=== PATIENT | female | born 1945 | race Caucasian/White ===

== ENCOUNTER → 2016-07-31 | Outpatient (CLI) | payer BC ==
[~2016-07-31] MED LIST: ASPI81TA28 PO; CALC500C70 PO; CARV3.122 PO; CARV6.252 PO; INSDGI SQ; LISI-787 PO; METF1TAB53 PO; MULT-506 PO; OMEG10007 PO; PRAV20TA PO; pioglitazone PO
[2016-07-31 13:17] LABS: HEMATOCRIT 39.2 % (37-47); MEAN CELL VOLUME 88.5 fL (80-100); MEAN CORPUSCULAR HGB CONC 33.9 g/dl (32-36); MEAN PLATELET VOLUME 9.8 fL (7.4-10.4); PLATELET COUNT 214 K/uL (130-400); RED BLOOD COUNT 4.43 M/uL (4.2-5.4); WHITE BLOOD COUNT 7.23 K/uL (4.8-10.8)
[2016-07-31 13:25] LABS: BLOOD UREA NITROGEN 15 mg/dl (7-18); BUN/CREATININE RATIO 18.2 (10-20); CALCIUM 10.1 mg/dl (8.5-10.1); CARBON DIOXIDE 27 mmol/L (21-32); CHLORIDE 104 mmol/L (98-107); CREATININE 0.81 mg/dl (0.60-1.20); GLUCOSE 192 mg/dl (70-99); POTASSIUM 4.1 mmol/L (3.5-5.1); SODIUM 141 mmol/L (136-145)
== END | disposition home or self-care (01) ==
LOC: C.LABMFLN 08:20
PROVIDERS: ATTEND Internal Medicine Cardiovascular Disease
DX: Z01.818 Encounter for other preprocedural examination (principal)

== ENCOUNTER 2016-08-03 10:12 | Observation (INO) | payer BC ==
[~2016-08-03] VITALS: Ht 162.6 cm; Wt 93.2 kg
[2016-08-03] VITALS (8 sets, daily range): BP systolic 113–154; BP diastolic 66–80; PULSE 73–94; TEMP 36.7–36.9; O2SAT 90–97; Ht 162.6 cm; Wt 93.2 kg
[~2016-08-03 10:12] MED LIST changes: -CARV6.252 PO; +CEFAZOLIN 1000MG/55 ML D5W IV SCH; +LACTATED RINGER'S 1000ML 1,000 ML IV SCH
[2016-08-03] MEDS ORDERED: CARV6.252 PO (11:32)
[2016-08-03] MEDS ORDERED: CEFAZOLIN 2000 MG/60 ML D5W 60 ML IV SCH (12:30)
--- NOTE | 2016-08-03 13:00 | Procedure Note ---
Pre-Mod Sedation Assessment General Date of Moderate Sedation: Aug 03, 2016. Vital Signs: Vital Signs Past 12 Hours Date Time Temp Pulse Resp B/P Pulse Ox O2 Delivery O2 Flow Rate FiO2 08/03/16 11:20 36.9 73 20 154/67 97 Room Air 149/66 Review Cardiovascular: regular rate, rhythm Abdomen: normal bowel sounds Lungs: lungs clear Pre-Sedation Airway Assessment Oral Cavity: WNL Smoking Status: Never Smoker Procedure Planning Contraindications-for Mod Sed: None Yes Notes The planned sedation has been discussed with the patient and consent obtained. I have identified the patient, determined the appropriateness of sedation and have assessed the patient immediately prior to the procedure. All medicine(s) and interventions are by my order.
--- NOTE | 2016-08-03 13:00 | History & Physical Bridge Note ---
H&P Re-Evaluation Bridge Note: I have examined the patient, reviewed the History & Physical and in the interval since the performance of the History & Physical I have noted the following changes of clinical significance: No changes noted. I reviewed the indications, procedure, risks and alternatives with the patient and her family and they understand and she agrees to proceed. Consent obtained.
[2016-08-03] MEDS ORDERED: BACITRACIN 50000 UNIT VIAL ONE (13:03)
[2016-08-03] MEDS ORDERED: LIDOCAINE HCL 1% 20 ML VIAL ONE (13:03)
[2016-08-03] MEDS ORDERED: BACITRACIN OINT 0.9 GM PKT ONE (13:03)
[2016-08-03] MEDS ORDERED: FENTANYL CITRATE INJ 50 MCG/1 ML 2 ML VIAL ONE ×3 (13:11→14:29)
[2016-08-03] MEDS ORDERED: MIDAZOLAM HCL 5 MG/ML 1 ML VIAL ONE ×2 (13:11→13:42)
[2016-08-03] MEDS ORDERED: MIDAZOLAM HCL 1 MG/ML 2ML VIAL ONE (13:42)
[2016-08-03] MEDS ORDERED: ACETAMINOPHEN 325 MG TAB PO PRN (15:15)
[2016-08-03] MEDS ORDERED: IV FLUIDS COMPLETED PRN (15:30)
[2016-08-03] MEDS ORDERED: GLUCOSE 40% GEL 15 GM TUBE PO PRN (17:00)
[2016-08-03] MEDS ORDERED: DEXTROSE 50% 50 ML SYR IV PRN (17:00)
[2016-08-03] MEDS ORDERED: GLUCOSE 10 TABS/TUBE PO PRN (17:00)
[2016-08-03] MEDS ORDERED: GLUCAGON FOR INJ 1 MG VIAL SQ PRN (17:00)
[2016-08-03] MEDS ORDERED: INSULIN GLARGINE PER SC SCH (18:00)
--- NOTE | 2016-08-03 18:20 | Procedure Note ---
Post-Mod Sedation Assessment General Date of Moderate Sedation Aug 03, 2016. Vital Signs: Vital Signs Past 12 Hours Date Time Temp Pulse Resp B/P Pulse Ox O2 Delivery O2 Flow Rate FiO2 08/03/16 16:02 87 16 119/70 90 08/03/16 15:30 88 16 154/79 95 Room Air 08/03/16 15:20 90 16 136/66 97 Nasal Cannula 2 08/03/16 15:10 90 16 130/59 98 Mask 10 08/03/16 11:20 36.9 73 20 154/67 97 Room Air 149/66 Review - Discharge Criteria Vital Signs Stable: Yes Alert/Oriented/Conversant: Yes Returned to Baseline Mental St: Yes Nausea Absent/Minimal: Yes Pain/Discomfort/Absent/Minimal: Yes Normal/Baseline Respirations: Yes Active Bleeding?: No
--- NOTE | 2016-08-03 18:26 | Cardiology Procedure Brief Nt ---
Preliminary Cardiology Note Procedure Date Aug 03, 2016. Pre-Procedure Diagnosis Cardiomypathy, CHF, LBBB Post-Procedure Diagnosis Same Procedure(s) Performed BiVentricular ICD implant L subclavian venogram [employer]idential [employer] Softwood Faller(s) None Estimated Blood Loss 50 cc Preliminary Findings Good lead position, good measurements Recommendations Monitor overnight Specimens None Anesthesia Local with sedation Complication(s) None Disposition PCU
[2016-08-03] MEDS: CEFAZOLIN IV 2,000 MG in DEXTROSE 5% 50ML 50 ML IV SCH (19:03)
[2016-08-03] MEDS: KETOROLAC TROMETHAMINE 10 MG TAB PO PRN (19:23)
[2016-08-03] MEDS ORDERED: INSULIN GLARGINE SC ONE (21:00)
[2016-08-03] MEDS ORDERED: INSULIN GLARGINE SC SCH (21:00)
[2016-08-03] MEDS ORDERED: PRAVASTATIN SOD 20 MG TAB PO SCH (21:00)
[2016-08-03] MEDS: CARVEDILOL 6.25 MG TAB PO SCH (21:45)
[2016-08-04] MEDS: CEFAZOLIN IV 2,000 MG in DEXTROSE 5% 50ML 50 ML IV SCH ×2 (02:51→11:19)
[2016-08-04] MEDS: KETOROLAC TROMETHAMINE 10 MG TAB PO PRN (03:06)
[2016-08-04 03:41] VITALS: BP 133/79; PULSE 88; TEMP 36.8; O2SAT 91
[2016-08-04 04:00] VITALS: O2SAT 93
--- NOTE | 2016-08-04 06:42 | DIAGNOSTIC IMAGING REPORT ---
CHEST 2 VIEWS ROUTINE CLINICAL HISTORY: Chest x-ray status post pacemaker placement. COMPARISON STUDY: No previous studies for comparison. FINDINGS: There is a left subclavian pacer/defibrillator present. There is no pneumothorax. There is no focal pulmonary consolidation. There is no failure. There is a prominent left cardiophrenic angle fat pad. There is minor left basilar atelectasis/scarring.[ IMPRESSION: No evidence of pneumothorax status post placement of a left subclavian pacer/defibrillator Electronically signed by: Kavon Hernandez M.D. 08/04/2016 6:41 AM Dictated Date/Time: 08/04/2016 6:40 AM
[2016-08-04 07:09] VITALS: BP 143/71; PULSE 77; TEMP 36.6; O2SAT 96
[2016-08-04] MEDS ORDERED: METFORMIN HCL 500 MG TABCR PO SCH (07:30)
[2016-08-04 08:00] VITALS: O2SAT 93
--- NOTE | 2016-08-04 08:42 | Discharge Instructions ---
Discharge Instructions Admission Cardiomyopathy, LBBB, CHF Discharge Discharge Diagnosis / Problem: S/P Biventricular ICD implantation Discharge Goals Goal(s): Improve disease control Activity Recommendations Activity Limitations: as noted below ACTIVITY RECOMMENDATIONS: * Do not raise affected arm over head for 2 weeks. SPECIAL CARE INSTRUCTIONS: * If bleeding occurs, apply direct pressure to area for 5 minutes. * Call your doctor if you have severe pain, fever, drainage or bleeding at site. * Keep dressing on and dry for 48 hours then remove. * Keep any scheduled doctor's appointment. * Implant Card - hand held device with website information given. SKIN IRRITATION: * You may experience some redness and/or swelling in the area where radiation was administered. If any skin irritation occurs, please contact your family physician. FOLLOW UP VISIT: 08/07/16 @ 10:00 am . Current Hospital Diet Patient's current hospital diet: AHA Diet (Heart Healthy), Diabetes Type 2 Diet Discharge Diet Recommended Diet: AHA Diet (Heart Healthy) Pending Studies Studies pending at discharge: no Medical Emergencies . Who to Call and When: Medical Emergencies: If at any time you feel your situation is an emergency, please call 911 immediately. . Non-Emergent Contact Non-Emergency issues call your: Voting Machine Mechanic . . "Provider Documentation" section prepared by Serena Hendrickson. VTE Core Measure Inpt VTE Proph given/why not?: Treatment not indicated
[2016-08-04] MEDS: CARVEDILOL 6.25 MG TAB PO SCH (08:55)
--- NOTE | 2016-08-04 08:58 | Cardiology Follow-Up ---
Subjective Date of Service: Aug 04, 2016. Pt evaluation today including: conversation w/ patient, physical exam, lab review, review of studies, review of inpatient medication list History of Present Illness Post-biventricular ICD implantation for cardiomyopathy on 08/03/2016. She feels well this morning other than some incisional discomfort. No shortness of breath or chest discomfort. Social History Smoking Status: Former Smoker History of Alcohol Use: No Review of Systems Respiratory: No shortness of breath Cardiac: No chest pain Objective Vital Signs Past 12 Hours Date Time Temp Pulse Resp B/P Pulse Ox O2 Delivery O2 Flow Rate FiO2 08/04/16 07:09 36.6 77 19 143/71 96 Room Air 08/04/16 04:00 93 Room Air 08/04/16 03:41 36.8 88 21 133/79 91 Room Air 08/03/16 23:59 93 Room Air 08/03/16 23:13 36.8 86 20 145/80 93 Room Air 08/03/16 21:42 94 127/77 Last Recorded Weight-Kilograms: 93.200 Intake & Output 8-Hour Column 08/03/16 08/03/16 08/04/16 15:59 23:59 07:59 Intake Total 700 ml 300 ml Output Total 400 ml 500 ml Balance 300 ml -200 ml 24-Hour Column 08/04/16 07:59 Intake Total 1000 ml Output Total 900 ml Balance 100 ml Physical Exam Constitutional: Level of Distress: NAD Lungs: Auscultation: breath sounds normal Cardiovascular: Heart Auscultation: RRR, no rubs Extremities: no edema Incision is clean and dry, no bleeding or hematoma Data Laboratory Results: Last 24 Hours Test 08/03/16 11:43 08/03/16 16:05 08/03/16 18:19 08/03/16 20:04 Bedside Glucose 105 mg/dl 78 mg/dl 130 mg/dl 168 mg/dl Test 08/04/16 06:32 Bedside Glucose 115 mg/dl Imaging: Chest x-ray shows good lead position and no pneumothorax EKG: Sinus rhythm with appropriate ventricular pacing Telemetry reviewed: Sinus rhythm with appropriate ventricular pacing, PVCs ICD evaluation: Excellent pacing and sensing characteristics. Assessment and Plan #1. Postop day #1: Doing very well post-ICD implantation, minor incisional discomfort. The device is working well and the site looks good. Stable for discharge.
[2016-08-04] MEDS ORDERED: PIOGLITAZONE TAB 15 MG TAB PO SCH (09:00)
[2016-08-04] MEDS ORDERED: ASPIRIN 81 MG ECTAB PO SCH (09:00)
[2016-08-04] MEDS ORDERED: LISINOPRIL/HCTZ 20/12.5MG TAB PO SCH (09:00)
[2016-08-04] MEDS ORDERED: MULTIVITAMIN TAB PO SCH (09:00)
--- NOTE | 2016-08-04 11:35 | Discharge Summary ---
Discharge Summary Admission Date: Aug 03, 2016 at 15:17 Discharge Date: Aug 04, 2016 Discharge Disposition: Home Primary Diagnosis: Cardiomyopathy, CHF, LBBB Procedures: Biventricular ICD implantation Discharge Instructions Last Recorded Wt (Kilograms): 93.200 Activity Recommendations: limitations as noted below Allergies: Coded Allergies: No Known Allergies (Unverified , 08/03/16) Additional Instructions: ACTIVITY RECOMMENDATIONS: * Do not raise affected arm over head for 2 weeks. SPECIAL CARE INSTRUCTIONS: * If bleeding occurs, apply direct pressure to area for 5 minutes. * Call your doctor if you have severe pain, fever, drainage or bleeding at site. * Keep dressing on and dry for 48 hours then remove. * Keep any scheduled doctor's appointment. * Implant Card - hand held device with website information given. SKIN IRRITATION: * You may experience some redness and/or swelling in the area where radiation was administered. If any skin irritation occurs, please contact your family physician. FOLLOW UP VISIT: Keep any scheduled doctor appointments. Special Care: Call your doctor if: * Temperature above 101 degrees * Pain not relieved by pain medicine ordered * There is increased drainage or redness from any incision * You have any unanswered questions or concerns. Avoid all tobacco products. If you need help to stop smoking, call [place]'s FREE QUITLINE at . This is a free call. Admission HPI This is a very pleasant 70-year-old woman who has a history of hypertension, diabetes mellitus and hypercholesterolemia. She was identified as having a cardiomyopathy when she developed symptoms of exertional chest discomfort and shortness of breath around the summer of 2015. At that time she was noted to have an ejection fraction about 25% by echo, and a left bundle branch block which was new since a prior electrocardiogram of 2006. Cardiac catheterization was done on 05/17/2016 and she had coronary artery disease but it was nonobstructive (less than 40%). Her cardiomyopathy is therefore felt to be nonischemic and possibly related to her left bundle. She was treated medically but has not tolerated high doses of beta blockade, she remains on carvedilol. She is also not tolerated high doses of lisinopril but remains on that at 20 mg daily. She continues to have symptoms of fatigue and difficulty with exertion, she appears to be class III in terms of NYHA heart failure classification and an echocardiogram done 06/29/2016 showed mild left ventricular dilatation with an ejection fraction of 25-30%. Her symptoms have not changed much since diagnosis and she continues to have exertional chest discomfort which is not felt to be due to coronary artery disease as well as dyspnea on exertion. She has not had lightheadedness, dizziness, presyncope or syncope. Admission Physical Exam Additional Comments: Constitutional: Alert, cooperative and in no distress. She is overweight. HEENT: Unremarkable Neck: No jugular venous distention, carotid pulses are normal and equal bilaterally without bruits. Pulmonary: Clear to auscultation bilaterally. Cardiac: Regular rhythm with no murmur, gallop or rub. Abdomen: Soft, nontender with normal bowel sounds. Extremities: No edema. Distal pulses intact. Neurologic: No focal findings. Gait is steady. Skin: No rash, ecchymoses or petechiae. Hospital Course Patient with cardiomyopathy, CHF, and LBBB underwent biventricular ICD implantation on 08/03/[address] Bledsoe. She tolerated the procedure well. Device check showed excellent sensing and pacing characteristics. CXR showed good lead placement and no pneumothorax. She was discharged home on 08/04/16. She will have follow-up in 3 days for incision check and 1 month for device check. Total time spent on discharge = This includes examination of the patient, discharge planning, medication reconciliation, and communication with other providers.
[2016-08-04 11:36] VITALS: BP 143/71; PULSE 77; TEMP 36.6; O2SAT 93
[2016-08-04 11:41] VITALS: BP 151/76; PULSE 76; TEMP 37; O2SAT 94
--- NOTE | 2016-09-07 14:47 | OPERATIVE REPORT ---
DATE OF OPERATION: 08/03/2016 PREOPERATIVE DIAGNOSES: 1. Nonischemic cardiomyopathy. 2. Left bundle branch block. 3. Chronic class 3 congestive heart failure. POSTOPERATIVE DIAGNOSES: Same. PROCEDURES: 1. Right ventricular ICD lead implantation. 2. Atrial lead implantation. 3. Coronary sinus angiography. 4. Left ventricular lead implantation. SURGEON: Jorge Bledsoe M.D. ANESTHESIA: Local with sedation. HISTORY OF PRESENT ILLNESS: This is a 70-year-old woman who has a history of nonischemic cardiomyopathy diagnosed in March of 2016. Her symptoms preceded that, and in 2006, she did not have a left bundle branch block or a cardiomyopathy. The etiology is unknown, but it appears to be nonischemic and may be due to her left bundle branch block. She has a wide QRS of 170 milliseconds, she has class 3 congestive heart failure and her left ventricular ejection fraction on medical therapy is 25% by echo. At catheterization, she had nonobstructive coronary disease. She is therefore brought to laboratory for biventricular ICD implantation. DESCRIPTION OF PROCEDURE: After obtaining informed consent for the procedure, she was brought to the laboratory on 08/03/2016 being n.p.o. after midnight. She was identified in the laboratory, prepped and draped in standard sterile manner for a left-sided ICD implantation. The left prepectoral region was anesthetized with 1% lidocaine local anesthetic and left subclavian venipuncture was performed by percutaneous technique and a guidewire placed through the left subclavian vein into the superior vena cava. The area was further infiltrated with 1% lidocaine local anesthetic and a 6 cm incision was made parallel to the left clavicle and 2 cm below it and carried down to the anterior pectoralis fascia. An ICD pocket was formed by blunt dissection anterior to the pectoralis fascia and a bacitracin-soaked sponge (50,000 units in 50 mL normal saline solution) was placed in the pocket. A 10.5-[place] Medtronic lead introducer was placed over the guidewire into the left subclavian vein, the dilator and guidewire were removed and a bipolar active fixation steroid-tipped dual coil defibrillator lead was advanced through the introducer into the superior vena cava. The guidewire was traced back through introducer and introducer stripped away from lead and guidewire. An 8-[place] Medtronic lead introducer was placed over the guidewire into the left subclavian vein, the dilator and guidewire were removed and a bipolar active fixation steroid-tipped atrial lead was advanced through introducer into the superior vena cava. The guidewire was placed back through introducer and introducer stripped away from lead and guidewire. Using a curved stylette, the ventricular lead was advanced through the right ventricular outflow tract and then using a straight stylette was positioned in the right ventricular apex. Once in position, the ventricular pacing threshold was evaluated in bipolar configuration at a pulse width of 0.5 milliseconds. The final ventricular pacing threshold was 0.3 volts with a current of 1.8 milliamps, 5-volt lead impedance was 1187 ohms and R-waves were sensed at 17.3 millivolts. Diaphragmatic pacing was not present with a 10 volt bipolar output. The atrial lead was then positioned in the region of the atrial appendage and screw extended fixing the lead in position. Atrial pacing threshold was evaluated in bipolar configuration and a pulse width of 0.5 milliseconds. Final atrial pacing threshold was 0.4 volts with a current of 0.3 milliamp, 5-volt lead impedance was 1032 ohms and P-waves were sensed at 4.8 millivolts. Diaphragmatic pacing was not present with a 10 volt bipolar output. Once the atrial and ventricular leads were in position, they were attached to the anterior pectoralis fascia using 1 suture of 2-0 silk around the lead collars. The short guidewire was exchanged for a long guidewire and a [place] coronary sinus sheath was advanced to position in the right atrium. Using a right angle guiding catheter, a guidewire was placed in the coronary sinus and then the [place] sheath system was advanced into the coronary sinus. A balloon occlusion catheter was advanced into the coronary sinus, it was inflated and coronary sinus angiography was performed in various projections. A good vessel was identified and using a 0.014 inch guidewire manipulated into this vessel, a quadripolar coronary sinus lead was advanced to good position. Once in position, the left ventricular pacing threshold was evaluated in the LV tip to LV2 electrode configuration at a pulse width of 0.5 milliseconds. Pacing threshold was 0.9 volts with a current of 1.8 milliamps, 5-volt lead impedance was 522 ohms and R-waves were sensed at 2.3 millivolts. Diaphragmatic pacing was not present with a 10 volt output. The sheath system was then removed from the catheter. The leads were attached to the anterior pectoralis fascia using 2 sutures of 2-0 silk around each lead collar, the bacitracin-soaked sponge was removed from the pocket and the ICD was connected to the leads and found to be functioning normally. It was placed in the pocket with the leads coiled beneath it and the incision was closed with a running double subcutaneous closure of 3-0 Vicryl followed by a running subcuticular skin closure of 4-0 Vicryl. Bacitracin ointment was placed on incision and a dressing applied. The patient tolerated the procedure well, there were no complications and estimated blood loss was 50 mL. The patient was transferred to the telemetry unit for monitoring. The atrial lead is a Medtronic model 5076, serial #[id number] and is a bipolar active fixation steroid-tipped MRI compatible lead. The ventricular lead is a Medtronic model 6947M, serial #[id number] and is a bipolar active fixation steroid-tipped dual coil defibrillator lead. The coronary sinus lead is a Medtronic model 4598, serial #[id number] and is a quadripolar coronary sinus lead. The ICD is a Medtronic Amplia MRI quad CRTD SureScan model ICBM5HV, serial #[id number]. The ICD was reprogrammed in the laboratory to final settings. [facility]
== END 2016-08-04 12:25 | disposition home or self-care (01) ==
LOC: C.MTU 10:12 → C.2T 15:17
PROVIDERS: ADMIT Internal Medicine Cardiovascular Disease; ATTEND Internal Medicine Cardiovascular Disease
DX: I42.9 Cardiomyopathy, unspecified (principal); I50.9 Heart failure, unspecified; I44.7 Left bundle-branch block, unspecified; I10 Essential (primary) hypertension; E11.9 Type 2 diabetes mellitus without complications; Z87.891 Personal history of nicotine dependence; M47.812 Spondylosis without myelopathy or radiculopathy, cervical region; E78.5 Hyperlipidemia, unspecified; E66.9 Obesity, unspecified; Z90.49 Acquired absence of other specified parts of digestive tract; Z90.710 Acquired absence of both cervix and uterus; Z12.31 Encounter for screening mammogram for malignant neoplasm of breast

== ENCOUNTER → 2016-08-03 | Outpatient (CLI) | payer BC ==
--- NOTE | 2016-08-03 13:30 | MAMMOGRAPHY REPORT ---
BILATERAL DIGITAL SCREENING MAMMOGRAM WITH CAD: 08/03/2016 CLINICAL HISTORY: Routine screening. Patient has no complaints. TECHNIQUE: Current study was also evaluated with a Computer Aided Detection (CAD) system. Bilatera l CC and MLO views were obtained. COMPARISON: Comparison is made to exams dated: 07/28/2015 mammogram, 06/12/2013 mammogram, 07/21/2014 mammogram, 06/11/2012 mammogram, 04/18/2011 mammogram, and 03/29/2010 mammogram - [facility]. BREAST COMPOSITION: The tissue of both breasts is almost entirely fatty. FINDINGS: No suspicious masses, calcifications, or areas of architectural distortion are noted in e ither breast. There has been no significant interval change compared to prior exams. Scattered bilat eral benign-appearing calcifications are not significantly changed. IMPRESSION: ACR BI-RADS CATEGORY 2: BENIGN There is no mammographic evidence of malignancy. A 1 year screening mammogram is recommended. The p atient will receive written notification of the results. Approximately 10% of breast cancers are not detected with mammography. A negative mammographic repor t should not delay biopsy if a clinically suggestive mass is present. Kandi Garcia M.D. ah/:08/03/2016 11:58:06 Blood Bank Manager: Hermila KING(R)(M), [facility] letter sent: Normal 1/2 BI-RADS Code: ACR BI-RADS Category 2: Benign
== END | disposition home or self-care (01) ==
LOC: C.MAMM 09:09
PROVIDERS: ATTEND Family Medicine
DX: Z12.31 Encounter for screening mammogram for malignant neoplasm of breast (principal)

== ENCOUNTER → 2016-12-29 | Outpatient (CLI) | payer BC ==
[~2016-12-29] MED LIST changes: -CARV3.122 PO; +CARV6.252 PO; -CEFAZOLIN 1000MG/55 ML D5W IV SCH; -LACTATED RINGER'S 1000ML 1,000 ML IV SCH
== END | disposition home or self-care (01) ==
LOC: C.LABPVFM 08:41
PROVIDERS: ATTEND Family Medicine
DX: R39.9 Unspecified symptoms and signs involving the genitourinary system (principal)

== ENCOUNTER → 2017-08-21 | Outpatient (CLI) | payer BC ==
--- NOTE | 2017-08-21 15:23 | MAMMOGRAPHY REPORT ---
BILATERAL DIGITAL SCREENING MAMMOGRAM TOMOSYNTHESIS WITH CAD: 08/21/2017 CLINICAL HISTORY: Routine screening. Patient has no complaints. TECHNIQUE: Breast tomosynthesis in addition to standard 2D mammography was performed. Current study was also evaluated with a Computer Aided Detection (CAD) system. COMPARISON: Comparison is made to exams dated: 08/03/2016 mammogram, 07/28/2015 mammogram, 07/21/2014 ma mmogram, 06/12/2013 mammogram, 06/11/2012 mammogram, and 04/18/2011 mammogram - [facility]. BREAST COMPOSITION: There are scattered areas of fibroglandular density in both breasts. FINDINGS: A metallic cardiac device projects over the left pectoralis muscle on the MLO view. There are a few scattered benign-appearing macro calcifications. No suspicious mass, architectural distort ion or cluster of microcalcifications is seen. IMPRESSION: ACR BI-RADS CATEGORY 1: NEGATIVE There is no mammographic evidence of malignancy. A 1 year screening mammogram is recommended. The pa tient will receive written notification of the results. Approximately 10% of breast cancers are not detected with mammography. A negative mammographic report should not delay biopsy if a clinically suggestive mass is present. Serena Blum M.D. ay/:08/21/2017 10:46:49 Geographical Historian: Trinh Patino, [facility] letter sent: Normal 1/2 BI-RADS Code: ACR BI-RADS Category 1: Negative
== END | disposition home or self-care (01) ==
LOC: C.MAMM 09:46
PROVIDERS: ATTEND Family Medicine
DX: Z12.31 Encounter for screening mammogram for malignant neoplasm of breast (principal); Z95.0 Presence of cardiac pacemaker

== ENCOUNTER → 2018-02-19 | Outpatient (CLI) | payer BC | END | disposition home or self-care (01) | LOC: C.LABPVFM 16:05 | PROVIDERS: ATTEND Family Medicine | DX: R19.7 Diarrhea, unspecified (principal) ==